=== PATIENT | male | born 1965 | race Caucasian/White ===

== ENCOUNTER → 2017-11-04 | Outpatient (CLI) | payer OTHER ==
--- NOTE | ~2017-11-04 | 24HR ---
[facility] [place] [address] 24 HR ELECTROCARDIOGRAM REPORT Name: JULIANA ORTEZ Room #: REG [facility]#: [id number] Admission: 11/04/17 Attend Phys: Maxi Grayson MD Discharge: Date of : 69 Date of Service: 11/04/17 1451 Report #: [id number] THIS REPORT FOR: //name// [facility] Test Date: 2017-11-04 Test Time: 14:51:00 Pat Name: JULIANA ORTEZ Department: Room: Gender: [employer]: : [id number] Requested By: Maxi Grayson Order Number: [id number] Luci MD: Devin Sosa Interpretive Statements 1. The study duration was 24 hours and the technical quality was good. 2. Predominant rhythm sinus at an average heart rate is 62 bpm, range 39-112 bpm. Longest RR interval 1.8 seconds. 3. Rare, isolated atrial premature complexes. No atrial fibrillation or atrial flutter. No heart block. No supraventricular tachycardia. 4. Rare, isolated premature ventricular complexes. No ventricular tachycardia. No ventricular couplets or triplets. 5. No symptoms reported Electronically Signed On 11-07-2017 17:40:10 CDT by Devin Sosa [email or web address] <ELECTRONICALLY SIGNED> By: Devin Sosa MD, [facility] 11/07/17 1740 1451 1451 Devin Sosa MD, [facility] /EPI
== END ==
LOC: CV 14:12
DX: R00.2 Palpitations (principal)